=== PATIENT | male | born 1945 | race Caucasian/White ===

== ENCOUNTER 2019-01-28 06:57 | Day surgery (SDC) | payer OTHER, MEDICARE ==
[~2019-01-28] VITALS: Ht 182.9 cm; Wt 147.3 kg
[2019-01-28] VITALS (8 sets, daily range): BP systolic 125–155; BP diastolic 75–98
[~2019-01-28 06:57] MED LIST: AMIO200T40 PO; BUPR75TA8 PO; CITA40TA11 PO; DABI150C PO; FURO40TA4 PO; LISI40TA4 PO; METO50TA17 PO; SPIR25TA5 PO
[2019-01-28] MEDS ORDERED: FURO80TA87 PO (08:00)
[2019-01-28] MEDS ORDERED: ISOS30TA9 PO (08:00)
[2019-01-28] MEDS ORDERED: QUET25TA PO (08:00)
[2019-01-28] MEDS ORDERED: TRAZ-218 PO (08:00)
[2019-01-28] MEDS ORDERED: NITR0.4T48 SL (08:00)
[2019-01-28] MEDS ORDERED: LEVO50TA8 PO (08:00)
[2019-01-28] MEDS ORDERED: DABI150C PO (08:00)
[2019-01-28] MEDS ORDERED: PER10325T PO (08:00)
[2019-01-28] MEDS ORDERED: METO50TA17 PO (08:00)
[2019-01-28] MEDS ORDERED: diphenhydrAMINE 25mg capsule PO PRN (08:15)
[2019-01-28] MEDS ORDERED: normal saline 1,000 ML IV SCH (08:15)
[2019-01-28 08:24] LABS: BASOPHILS % (AUTO) 0.8 % (0-1); EOSINOPHILS # (AUTO) 0.2 X10'3 (0-0.9); EOSINOPHILS % (AUTO) 3.1 % (0-6); HEMATOCRIT 37.3 % (42.0-52.0); HEMOGLOBIN 12.8 g/dl (14.0-17.9); LYMPHOCYTES # (AUTO) 0.8 X10'3 (1.1-4.8); LYMPHOCYTES % (AUTO) 14.6 % (21-51); MEAN CORPUSCULAR HEMOGLOBIN 35.5 PG (27.0-31.0); MEAN CORPUSCULAR HGB CONC 34.2 g/dL (33.0-36.5); MEAN CORPUSCULAR VOLUME 103.7 FL (78-98); MEAN PLATELET VOLUME 8.3 FL (7.4-10.4); MONOCYTES # (AUTO) 0.6 X10'3 (0-0.9); MONOCYTES % (AUTO) 11.1 % (2-12); NEUTROPHILS # (AUTO) 3.9 X10'3 (1.8-7.7); NEUTROPHILS % (AUTO) 70.4 % (42-75); PLATELET COUNT 168 X10'3 (140-440); RED CELL DISTRIBUTION WIDTH 14.6 % (11.5-14.5); WHITE BLOOD COUNT 5.5 X10'3 (4.5-11.0)
[2019-01-28 08:32] LABS: ALBUMIN 3.2 G/DL (3.4-5.0); ANION GAP 9 (8-16); BLOOD UREA NITROGEN 20 MG/DL (7-18); BUN/CREATININE RATIO 17.2 (5.4-32.0); CALCIUM 8.8 MG/DL (8.5-10.1); CHLORIDE 106 MMOL/L (99-107); CREATININE 1.16 MG/DL (0.60-1.10); GLUCOSE 108 MG/DL (70-104); POTASSIUM 4.6 MMOL/L (3.5-5.1); SODIUM 142 MMOL/L (135-145); TOTAL CARBON DIOXIDE 27.4 MMOL/L (24-32); eGFR 62 ML/MIN
[2019-01-28] MEDS ORDERED: iohexol 350MG/ML 100ml bottle IV ONE (08:45)
[2019-01-28] MEDS ORDERED: proCHLORperazine 10 MG/2 ml inj ONE (08:45)
[2019-01-28] MEDS ORDERED: LIDOcaine 1% (10mg/ml)w/preservative injection 20ml MDV ONE ×2 (08:45→09:20)
[2019-01-28] MEDS ORDERED: midazolam 2 mg/2 ml injection ONE ×3 (08:45→09:58)
[2019-01-28] MEDS ORDERED: iohexol 350 MG/ML 50ML vial IV ONE (08:45)
[2019-01-28] MEDS ORDERED: fentaNYL/PF 50MCG/1 ML 2ML syringe ONE ×3 (08:45→09:58)
[2019-01-28] MEDS ORDERED: heparin 1,000unit/ml 10ml vial 10 ML ONE (09:35)
[2019-01-28] MEDS ORDERED: HYDROcodone/acetaminophen 10/325mg tab PO PRN (11:05)
[2019-01-28] MEDS ORDERED: HYDROcodone/acetaminophen 5mg/325mg tablet PO PRN (11:05)
[2019-01-28] MEDS ORDERED: acetaminophen 325mg tablet PO PRN (11:05)
[2019-01-28] MEDS ORDERED: proCHLORperazine 10 MG/2 ml inj IV PRN (11:05)
[2019-01-28] MEDS ORDERED: ondansetron/PF 4mg/2ml inj IV PRN (11:05)
[2019-01-28] MEDS ORDERED: OXAZEpam 15mg capsule PO PRN (11:05)
--- NOTE | 2019-01-28 11:05 | NUR ---
pt voided 600ml, clear, yellow urine
--- NOTE | 2019-01-28 12:48 | NUR ---
pt voided 450ml of clear yellow
== END 2019-01-28 13:30 | disposition home or self-care (01) ==
LOC: SSTAY O 06:57
PROVIDERS: ATTEND Internal Medicine Cardiovascular Disease
DX: I35.0 Nonrheumatic aortic (valve) stenosis (principal); I27.20 Pulmonary hypertension, unspecified; I42.9 Cardiomyopathy, unspecified; I10 Essential (primary) hypertension; E78.5 Hyperlipidemia, unspecified
CPT/HCPCS: 36415; 80048; 83735; 85025; 85610; 93005; 93460; 99152; 99153; A6257; J0780; J1644; J2001; J2250; J3010; J7030; Q0163; Q9967; A4620; C1760; C1769; C1894